=== PATIENT | female | born 1985 ===

== ENCOUNTER 2017-03-05 21:16 | Emergency (ER) | payer SELFPAY ==
[2017-03-05 21:17] VITALS: BMI 20.1
[2017-03-05 21:39] VITALS: O2SAT 100
--- NOTE | 2017-03-05 21:56 | C.PDOC ---
History Of Present Illness 31 year old female who is 12 weeks , A2, presents to the ED c/o lower abdominal cramping pain with associated light bleeding that started this morning. Patient reports her LMP was on 12/13/16. Time Seen by Provider: 03/05/17 21:49 Chief Complaint (Nursing): Abdominal Pain History Per: Patient History/Exam Limitations: no limitations Onset/Duration Of Symptoms: Hrs Current Symptoms Are (Timing): Still Present Location Of Pain/Discomfort: Suprapubic Radiation Of Pain To:: None Quality Of Discomfort: Cramping Associated Symptoms: denies: Fever, Nausea, Vomiting Exacerbating Factors: None Alleviating Factors: None Recent travel outside of the [place]: No Additional History Per: Patient Abnormal Vaginal Bleeding: No Last Menstral Period: 12/13/16 : 4 Para: 1 Miscarriage: 2 Past Medical History Reviewed: Historical Data, Nursing Documentation, Vital Signs Vital Signs: Last Vital Signs Temp 98.9 F 03/05/17 21:30 Pulse 92 H 03/05/17 21:30 Resp 16 03/05/17 21:30 BP 107/69 03/05/17 21:30 Pulse Ox 100 03/05/17 23:22 - Medical History PMH: No Chronic Diseases Surgical History: (x1) Family History: States: Unknown Family Hx - Social History Hx Alcohol Use: No Hx Substance Use: No - Immunization History Hx Tetanus Toxoid Vaccination: No Hx Influenza Vaccination: No Hx Pneumococcal Vaccination: No Review Of Systems Constitutional: Negative for: Fever, Chills Cardiovascular: Negative for: Chest Pain, Palpitations Respiratory: Negative for: Cough, Shortness of Breath Gastrointestinal: Positive for: Abdominal Pain. Negative for: Nausea, Vomiting Genitourinary: Negative for: Vaginal Discharge, Vaginal Bleeding Skin: Negative for: Rash Neurological: Negative for: Weakness, Numbness Physical Exam - Physical Exam Appears: Non-toxic, No Acute Distress Skin: Normal Color, Warm, Dry Head: Atraumatic, Normacephalic Eye(s): bilateral: Normal Inspection Nose: No Discharge, No Deformity Oral Mucosa: Moist Neck: Normal ROM, Supple Chest: Symmetrical Cardiovascular: Rhythm Regular, No Murmur Respiratory: Normal Breath Sounds, No Rales, No Rhonchi, No Wheezing Gastrointestinal/Abdominal: Soft, Tenderness (Suprapubic), No Guarding, No Rebound Extremity: Normal ROM, No Pedal Edema, No Calf Tenderness, No Deformity, No Swelling Neurological/Psych: Oriented x3, Normal Speech, Normal Cognition Gait: Steady ED Course And Treatment - Laboratory Results Result Diagrams: 03/05/17 22:06 03/05/17 22:06 O2 Sat by Pulse Oximetry: 100 (On RA) Pulse Ox Interpretation: Normal Medical Decision Making Medical Decision Making: Impression: patient with lower abdominal cramping pain and spotting Plan: * Labs * UA * Transvaginal US Labs WNL. UA shows moderate bacteria and LE, will treat for UTI. US FINDINGS: The uterus measures 12 x 10 x 10 cm. The cervix measures 4 cm. There is an intrauterine gestational sac containing a yolk sac and pole. Measurements correspond to a gestational age of 12 weeks. A heart rate of 163-165 beats per minute was obtained. A small 2 centimeter cyst is present in the maternal right ovary. Vascular waveforms are demonstrated in the ovary. The maternal left ovary is not visualized. IMPRESSION: Single live IUP Dictated and Authenticated by: Dominique Morrell MD 03/05/2017 11:04 PM Eastern Time ([place] & [place]) Patient reevaluated is resting comfortably in no distress. Pain has improved without medication. Abdomen is soft and nontender, no guarding. Vital signs stable. Discussed results with patient, and copy of report was provided. Patient feels comfortable going home and will be discharged. Patient given follow up instructions. Instructed to return to ER if symptoms worsen or new symptoms arise. 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 - Scribe Statement The provider has reviewed the documentation as recorded by the Scribe Hima Huynh All medical record entries made by the Vickieibe were at my direction and personally dictated by me. I have reviewed the chart and agree that the record accurately reflects my personal performance of the history, physical exam, medical decision making, and the department course for this patient. I have also personally directed, reviewed, and agree with the discharge instructions and disposition.
[2017-03-05 22:21] LABS: BASO # 0.2 K/uL (0.0-0.2); EOS # 0.1 K/uL (0.0-0.7); EOS % 1.4 % (0.0-4.0); HEMOGLOBIN 11.1 g/dL (11.0-16.0); LYMPH # 1.8 K/uL (1.0-4.3); LYMPH % 17.4 % (20.0-40.0); MEAN CELL VOLUME 73.3 fL (81.0-99.0); MEAN CORPUSCULAR HEMOGLOBIN 24.7 pg (27.0-31.0); MEAN CORPUSCULAR HGB CONC 33.7 g/dL (33.0-37.0); MEAN PLATELET VOLUME 8.7 fL (7.2-11.7); MONO # 0.6 K/uL (0.0-0.8); MONO % 5.8 % (0.0-10.0); NEUT # 7.5 K/uL (1.8-7.0); NEUT % 73.4 % (50.0-75.0); RBC 4.51 Mil/uL (3.80-5.20); RED CELL DISTRIBUTION WIDTH 14.5 % (11.5-14.5); WHITE BLOOD COUNT 10.2 K/uL (4.8-10.8)
[2017-03-05 22:24] LABS: HCG,QUALITATIVE URINE POSITIVE (NEGATIVE)
[2017-03-05 22:30] LABS: SQUAMOUS EPITHIAL 18 /hpf (0-5); URINE BACTERIA MOD (<OCC); URINE BILIRUBIN NEGATIVE (NEGATIVE); URINE BLOOD NEGATIVE (NEGATIVE); URINE CLARITY Hazy (Clear); URINE COLOR Yellow (YELLOW); URINE GLUCOSE (UA) NORMAL (Normal); URINE LEUKOCYTE ESTERASE 1+ Leu/uL (Negative); URINE NITRATE NEGATIVE (NEGATIVE); URINE PROTEIN NEGATIVE (NEGATIVE); URINE UROBILINOGEN NORMAL mg/dL (0.2-1.0)
[2017-03-05 22:38] LABS: ALB/GLOB RATIO 1.1 (1.0-2.1); ALBUMIN 3.8 g/dL (3.5-5.0); ALT/SGPT 11 U/L (9-52); AST/SGOT 22 U/L (14-36); BLOOD UREA NITROGEN 9 mg/dL (7-17); CALCIUM 8.8 mg/dl (8.6-10.4); GFR AFRICAN-AMERICAN > 60; GFR NON-AFRICAN AMERICAN > 60
--- NOTE | 2017-03-05 23:04 | US ---
EXAM: US Transabd First Trimester First Gest EXAM DATE/TIME: 03/05/2017 9:53 PM CLINICAL HISTORY: 31 years old, female; Signs and symptoms; Lmp or gestational age (in weeks): 11-5-17; Other: Pain/ bleeding; ; Prior surgery; Surgery date: 6+ months; Surgery type: 1 ; Additional info: Vaginal bleeding and pain, TECHNIQUE: Real-time ultrasound of the transabd first trimester first gest with image documentation. COMPARISON: No relevant prior studies available. FINDINGS: The uterus measures 12 x 10 x 10 cm. The cervix measures 4 cm. There is an intrauterine gestational sac containing a yolk sac and pole. Measurements correspond to a gestational age of 12 weeks. A heart rate of 163-165 beats per minute was obtained. A small 2 centimeter cyst is present in the maternal right ovary. Vascular waveforms are demonstrated in the ovary. The maternal left ovary is not visualized. IMPRESSION: Single live IUP.
[2017-03-05 23:33] VITALS: BP 105/73; PULSE 87; RESP 18; TEMP 98.3
== END 2017-03-05 23:32 | disposition home or self-care (01) ==
LOC: C.ER 21:16
DX: O20.0 Threatened abortion (principal); O23.41 Unspecified infection of urinary tract in pregnancy, first trimester; Z3A.12 12 weeks gestation of pregnancy